=== PATIENT | female | born 1940 | race Caucasian/White ===

== ENCOUNTER → 2016-04-01 | Outpatient (REF) ==
[~2016-04-01] MED LIST: ASPIR-LOW81 MG PO; ASPIRIN E.C. 8181 MG PO; EAR DROPS; GLUCOPHAGE1000 MG PO; LISINOPRIL2.5 MG PO; LOVASTATIN; METFORMIN500 MG PO; MOBIC7.5 M1 PO; ZESTRIL2.5 MG
== END ==
LOC: ZLAB.WCH 11:45
DX: Z01.89 Encounter for other specified special examinations (principal)

== ENCOUNTER → 2016-06-24 | Outpatient (REF) | LOC: ZLAB.WCH 11:36 | DX: Z01.89 Encounter for other specified special examinations (principal) ==

== ENCOUNTER → 2016-11-22 | Outpatient (CLI) | payer MEDICARE, OTHER | LOC: MC.RAD 08:03 | DX: Z12.31 Encounter for screening mammogram for malignant neoplasm of breast (principal) ==

== ENCOUNTER → 2017-01-05 | Outpatient (REF) | LOC: ZLAB.WCH 18:37 | DX: Z01.89 Encounter for other specified special examinations (principal) ==

== ENCOUNTER → 2017-07-06 | Outpatient (REF) | LOC: ZLAB.WCH 15:53 | DX: Z01.89 Encounter for other specified special examinations (principal) ==

== ENCOUNTER → 2017-11-17 | Outpatient (REF) | LOC: ZLAB.WCH 15:53 | DX: Z01.89 Encounter for other specified special examinations (principal) ==

== ENCOUNTER → 2017-11-25 | Outpatient (CLI) | payer MEDICARE, OTHER | LOC: MC.RAD 11:37 | DX: Z12.31 Encounter for screening mammogram for malignant neoplasm of breast (principal) ==

== ENCOUNTER → 2018-06-09 | Outpatient (REF) | LOC: ZLAB.WCH 14:15 | DX: Z01.89 Encounter for other specified special examinations (principal) ==

== ENCOUNTER → 2018-12-19 | Outpatient (CLI) | payer MEDICARE, OTHER | LOC: MC.RAD 12-18 10:30 | DX: Z12.31 Encounter for screening mammogram for malignant neoplasm of breast (principal); Z98.82 Breast implant status; Z92.3 Personal history of irradiation ==

== ENCOUNTER → 2019-12-31 | Outpatient (CLI) | payer MEDICARE, OTHER | LOC: MC.RAD 11:25 | DX: Z12.31 Encounter for screening mammogram for malignant neoplasm of breast (principal) ==

== ENCOUNTER → 2021-01-27 | Outpatient (CLI) | payer MEDICARE, OTHER | LOC: MC.RAD 12:39 | DX: Z12.31 Encounter for screening mammogram for malignant neoplasm of breast (principal) ==

== ENCOUNTER → 2023-02-02 | Outpatient (CLI) | payer MEDICARE, OTHER | LOC: MC.RAD 13:26 | DX: Z12.31 Encounter for screening mammogram for malignant neoplasm of breast (principal) ==

== ENCOUNTER 2023-09-29 16:20 | Inpatient (IN) | payer MEDICARE ==
[2023-09-28 21:45] VITALS: BP 162/74; PULSE 66
[2023-09-28 23:45] VITALS: BP 154/71; PULSE 69; TEMP 98
[2023-09-29] VITALS (11 sets, daily range): BP systolic 147–162; BP diastolic 69–83; PULSE 65–83; TEMP 97.8–98
[~2023-09-29] VITALS: Ht 152.4 cm; Wt 54.0 kg
--- NOTE | 2023-09-29 18:32 | NUR ---
Patient arrived by EMS, Amio gtt at 0.5 mg /min. Denies any chest pain, lightheadedness or other discomfort. Hypertensive and tachy 147/93 , HR 120. RA. Assessment intake completed.
[2023-09-29] MEDS ORDERED: LIPITOR 80MG80 MG PO (18:38)
[2023-09-29] MEDS ORDERED: JARDIANCE25 (18:38)
[2023-09-29] MEDS ORDERED: TOPROL XL 25MG25 MG PO (18:39)
[2023-09-29] MEDS ORDERED: PLAVIX 75MG TAB75 MG PO (18:44)
[2023-09-29] MEDS ORDERED: NEURONTIN300 MG/CAP PO (18:46)
[2023-09-29] MEDS ORDERED: VITAMIND3 5000 PO (18:47)
[2023-09-29] MEDS ORDERED: OZEMPIC0.25 MG/02 SQ (18:48)
[2023-09-29] MEDS ORDERED: Acetaminophen 325 MG TAB PO PRN (19:45)
[2023-09-29] MEDS ORDERED: Ondansetron 4 MG/2 ML VIAL IV PRN (19:45)
[2023-09-29 19:53] LABS: HEMATOCRIT 46.8 % (37.0-47.0); MEAN CELL VOLUME 79 fl (80.0-100.0); MEAN CORPUSCULAR HEMOGLOBIN 27 pg (27-31); MEAN CORPUSCULAR HGB CONC 34 g/dl (33.0-37.0); MEAN PLATELET VOLUME 10.3 fl (7.4-10.4); PLATELET COUNT 299 K/mm3 (130-400); RED BLOOD COUNT 5.93 M/mm3 (4.10-5.30); REDCELL DISTRIBUTION WIDTH-CV 14.2 % (11.5-14.5)
[2023-09-29] MEDS ORDERED: Heparin/D5W 250 ML IV SCH (20:00)
[2023-09-29] MEDS ORDERED: Heparin 5,000 UNITS/ML 1 ML VIAL IV ONE (20:00)
[2023-09-29] MEDS ORDERED: Heparin 5,000 UNITS/ML 1 ML VIAL IV PRN (20:00)
[2023-09-29] MEDS ORDERED: Amiodarone 450 MG in D5W Excel 250 ML IV SCH (20:00)
[2023-09-29 20:11] LABS: ALANINE AMINOTRANSFERASE 25 U/L (0-55); ALKALINE PHOSPHATASE 105 U/L (40-150); ANION GAP 10 mmol/L (7-16); AST,SGOT 20 U/L (5-34); BILIRUBIN,TOTAL 0.9 mg/dL (0.2-1.2); BLOOD UREA NITROGEN 32 mg/dL (10-20); CHLORIDE 105 mEq/L (98-107); CREATININE, serum 0.84 mg/dL (0.57-1.11); GLUCOSE 180 mg/dL (70-99); MAGNESIUM 1.1 mg/dL (1.6-2.6); POTASSIUM 3.9 mEq/L (3.5-4.5); SODIUM 140 mEq/L (136-145); TOTAL PROTEIN 7.3 g/dl (6.2-8.1)
[2023-09-29] MEDS ORDERED: Mag/Al Hydrox/Simeth Susp 30 ML CUP PO PRN (20:15)
[2023-09-29] MEDS ORDERED: Albuterol/Ipratropium 3 MG-0.5 MG/3 ML Neb Soln IH PRN (20:15)
[2023-09-29 20:19] LABS: TROPONIN-I 6 HR POST INITIAL < 0.010 ng/mL (0.00-0.033)
[2023-09-29] MEDS ORDERED: Insulin Lispro (HumaLOG) SQ SCH (21:00)
[2023-09-29] MEDS ORDERED: Sennosides/Docusate 8.6-50 MG TAB PO SCH (21:00)
[2023-09-29] MEDS ORDERED: Atorvastatin 80 MG TAB PO SCH (21:00)
[2023-09-29] MEDS ORDERED: Gabapentin 100 MG CAP PO SCH (21:00)
[2023-09-29 21:13] LABS: PARTIAL THROMBOPLASTIN TIME 29.3 SECONDS (26.0-37.0)
--- NOTE | 2023-09-29 23:21 | NUR ---
patient lying in bed, alert and oriented x4. denies chest pain and shortness of breath. 2005- orders clarified by OZZY Salinas to run amio at 1 mg/min for 3 hrs then adjust rate to 0.5 mg/min, heparin gtt and additional orders initiated. IV started in RF and current IV in LAC are patent, sites are CDI. slight blanchable redness noted on inner bilateral buttock cheeks, education provided on skin protection, pt verbally understood and refuses to not wear brief and refuses barrier cream at this time, able to self reposition. amio gtt running through LAC IV at rate of 1 mg/min and heparin gtt running through RF IV at a rate of 10 mls/hr both sites CDI. general brusing to all extremities noted. 2309- OZZY Salinas notified of pt in sinus rhythm with rate in 60s, per OZZY Salinas, will get EKG if pt remains in sinus rhythym at 0000, continue orders. fall precautions in place, call light within reach. pillow maintained between pt knees to protect bony prominences. pt has no further needs, questions or concerns at this time.
[2023-09-30] VITALS (14 sets, daily range): BP systolic 111–171; BP diastolic 47–89; PULSE 62–73; TEMP 97.3–97.8
[2023-09-30] MEDS ORDERED: Amiodarone 450 MG in D5W Excel 250 ML IV SCH ×2 (01:56)
[2023-09-30 03:53] LABS: BASO # 0.1 K/mm3 (0.0-0.2); BASO % 0.5 % (0.0-2.0); EOS # 0.1 K/mm3 (0.0-0.7); EOS % 1.2 % (0.0-4.0); GRAN # 6.8 K/mm3 (1.4-6.5); LYMPH # 2.6 K/mm3 (1.2-3.4); LYMPH % 24.7 % (20.0-51.0); MEAN CELL VOLUME 79 fl (80.0-100.0); MEAN CORPUSCULAR HEMOGLOBIN 28 pg (27-31); MEAN CORPUSCULAR HGB CONC 35 g/dl (33.0-37.0); MEAN PLATELET VOLUME 10.4 fl (7.4-10.4); PLATELET COUNT 253 K/mm3 (130-400); RED BLOOD COUNT 5.46 M/mm3 (4.10-5.30); REDCELL DISTRIBUTION WIDTH-CV 14.2 % (11.5-14.5)
[2023-09-30 04:11] LABS: CALCIUM 9.8 mg/dL (8.4-10.2); CREATININE, serum 0.9 mg/dL (0.57-1.11); POTASSIUM 3.9 mEq/L (3.5-4.5)
[2023-09-30 04:33] LABS: THYROID STIMULATING HORMONE 1.521 uIU/mL (0.350-4.940)
[2023-09-30] MEDS ORDERED: Dextrose 50% Water 25 GM/50 ML SYRINGE IV PRN (07:30)
[2023-09-30] MEDS ORDERED: Glucagon 1 MG VIAL IM PRN (07:30)
[2023-09-30] MEDS ORDERED: Dextrose (Glucose) 15 GM (4 x 3.75 GM) Chewable TABLET PACK PO PRN (07:30)
--- NOTE | 2023-09-30 08:00 | NUR ---
HEPARIN RESTARTED AND VERIFIED WITH ALAN DUENAS CHARGE. CURRENTLY 10 MLS/HR.
--- NOTE | 2023-09-30 09:37 | NUR ---
NOTIFIED DR. CORNELIUS @ 4334 OF PT CONTINUES WITH A FIB.
--- NOTE | 2023-09-30 09:41 | NUR ---
Initial visit; Patient [place] [facility] all her life and loves her life. Second Watch Sergeant states [place] and [place]. Patient and Second Watch Sergeant had a good visit. Second Watch Sergeant had to postpone prayer with Cici due to 'Rounding' so Second Watch Sergeant will keep Cici in her prayers.
[2023-09-30] MEDS ORDERED: SYNTHROID0.05 MG/TA PO (09:44)
[2023-09-30] MEDS ORDERED: Gabapentin 100 MG CAP PO ONE (10:15)
--- NOTE | 2023-09-30 14:03 | NUR ---
Forest Firefighter met with patient to discuss discharge planning. [place] [facility] [place] and stated she does not live with anyone besides her animals. Patient sees Dr. Clay for primary care and gets medications from [facility]. Patient has a rollator and cane available at home along with home oxygen through [facility]. Patient stated she is normally independent with ADLS, however does struggle sometimes with washing her back. Patient does not feel it is at the point where she needs in home help. Patient reported her neighbor checks in on her as needed. Patient's son, Ming (ph#[phone]) is a PA and lives in [place]. Patient stated Ming is her DPOA. Patient plans to return home at time of discharge and hopes to get home soon to watch the [employer]. Discharge Plan: Home
[2023-09-30 14:51] LABS: PARTIAL THROMBOPLASTIN TIME 117.7 SECONDS (26.0-37.0)
--- NOTE | 2023-09-30 15:04 | NUR ---
REPORT TO Casandra DUENAS.
--- NOTE | 2023-09-30 15:05 | NUR ---
REPORT RECEIVED FROM HENRIQUE WHITLOCK. AMIODARONE RUNNING IN LEFT AC AT 17.3 MLS/HR AND HEPARIN ON STANDY TO RESUME AT 1545. PT IN CHAIR AND DENIES NEEDS AT THIS TIME.
--- NOTE | 2023-09-30 15:43 | NUR ---
THIS NURSE CALLED AND NOTIFIED DR EVANS THAT PER PROTOCOL HEPARIN DRIP TO BE RESTARTED AT 1545. PLAN FOR CENTRAL LINE PLACEMENT AROUND 1615 AND THIS NURSE TOLD TO KEEP HEPRIN DRIP ON HOLD UNTIL CENTRAL LINE IS PLACED. THIS NURSE VERBALIZED UNDERSTANDING.
--- NOTE | 2023-09-30 16:43 | NUR ---
PT IN OR FOR CENTRAL LINE PLACEMENT
--- NOTE | 2023-09-30 18:26 | NUR ---
PT BACK FROM PACU AND UP TO CHAIR FOR DINNER. CENTRAL LINE TO RIGHT IJ, BRIGHT RED BLOOD NOTED TO DRESSING. PER [employer]ODUCT DEMO SPECIALIST DRESSING CHANGED 15 MINS PRIOR TO TRANSPORT. AMIODARONE RUNNING IN LEFT AC AT 17.3 MLS/HR AND HEPARIN DRIP CHANGED AND RESTARTED AT 8 MLS/HR PER PROTOCL. PT DENIES NEEDS.
--- NOTE | 2023-09-30 19:28 | NUR ---
REPORT GIVEN TO HENRIQUE LOPEZ
--- NOTE | 2023-09-30 20:46 | NUR ---
1730 Pt found in pacu-4 (waiting to go back to room) with saturated central line site, leaking into pillow case (line just placed in pacu). Pt on anticoagulant therapy. New central line dressing placed by this RN using sterile technique with additional sterile 4x4 dressing added under tegaderm/on top of bacteriostatic disc after educating and masking pt, who tolerated procedure well and without complaint. ice bag to r neck/line site to control bleeding as it is still leaky. Affected linens changed with drsg change. Pt transported with PACU staff to floor and drsg change and heparin gtt (paused) endorced to receiving RN. Dinner also ordered for her by PACU staff. Pt a&o, nad, and denies complaint or immediate need.
[2023-09-30] MEDS ORDERED: Gabapentin 300 MG CAP PO SCH (21:00)
[2023-10-01] VITALS (13 sets, daily range): BP systolic 114–148; BP diastolic 61–85; PULSE 55–71; TEMP 97.7–98.1
--- NOTE | 2023-10-01 00:03 | NUR ---
patient lying in bed, alert and oriented x4. denies chest pain and shortness of breath. PICC in RSC is patent, site is intact with dry bloody drainage noted, no continued bleeding at this time with amio gtt running at 0.5 mg/min. IV in RF is patent, site CDI with heparing gtt running at 8 ml/hr, 2000- hepxa within goal range, next check at 0500. blanchable redness to inner buttock cheeks noted, pt refusing barrier cream and additional interventions offered, independt with repositioning. fall precautions in place, call light within reach. pt has no further needs, questions or concerns at this time.
[2023-10-01 04:53] LABS: BASO # 0.1 K/mm3 (0.0-0.2); BASO % 0.7 % (0.0-2.0); EOS # 0.2 K/mm3 (0.0-0.7); EOS % 2.3 % (0.0-4.0); GRAN # 5.7 K/mm3 (1.4-6.5); GRAN % 63.2 % (42.2-75.2); HEMATOCRIT 41.6 % (37.0-47.0); HEMOGLOBIN 14.1 g/dl (12.5-16.0); LYMPH # 2.2 K/mm3 (1.2-3.4); LYMPH % 24.1 % (20.0-51.0); MEAN CELL VOLUME 81 fl (80.0-100.0); MEAN CORPUSCULAR HEMOGLOBIN 27 pg (27-31); MEAN CORPUSCULAR HGB CONC 34 g/dl (33.0-37.0); MEAN PLATELET VOLUME 10.9 fl (7.4-10.4); MONO # 0.8 K/mm3 (0.1-0.6); MONO % 9.3 % (1.7-9.3); PLATELET COUNT 228 K/mm3 (130-400); RED BLOOD COUNT 5.15 M/mm3 (4.10-5.30); REDCELL DISTRIBUTION WIDTH-CV 14.4 % (11.5-14.5)
[2023-10-01 05:14] LABS: CALCIUM 9.6 mg/dL (8.4-10.2); CREATININE, serum 0.86 mg/dL (0.57-1.11); POTASSIUM 3.7 mEq/L (3.5-4.5)
--- NOTE | 2023-10-01 08:30 | NUR ---
PT LAYING IN BED UPON ENTERING. ASSESSMENT DONE, MEDS GIVEN PER ORDER. PT DENIES PAIN. RIGHT TRIPLE IJ IN PLACE, BRIGHT RED BLOOD DRAINAGE NOTED AND PER NIGHT NURSE NO INCREASE FROM START OF HER SHIFT. BLUE, WHITE AND BROWN PORTS FLUSH WITH BLOOD RETURN. AMIODARONE RUNNING AT 17.3 MLS/HR IN WHITE PORT, HEPARIN RUNNING AT 6.5 MLS/HR IN BLUE PORT. INTS TO LEFT AC AND RIGHT FOREARM. PT DENIES NEEDS. BED IN LOWEST POSITION, CALL LIGHT IN REACH, BED ALARM ON
--- NOTE | 2023-10-01 13:00 | NUR ---
HEPXA FIRST GOAL AT 0.61. NO CHANGE MADE, HEPARIN RUNNING AT 6.5 MLS/HR.
--- NOTE | 2023-10-01 13:19 | NUR ---
SW received notification from therapy that patient is wanting to have home health services when she returns home. ODALYS met with patient to discuss. She states that she's had services from [facility] in the past and would like to use them again. [email or web address] list provided to patient. Referral faxed to [facility]. Discharge plan: Home with
--- NOTE | 2023-10-01 16:50 | NUR ---
PER CARDIOLOGY NOTE PT TO START ORAL AMIODARONE, NO ORDERS AT THIS TIME. DR FINNEGAN CALLED AND CONFIRMED THIS. DR CORNELIUS UPDATED
[2023-10-01] MEDS ORDERED: Amiodarone 450 MG in D5W Excel 250 ML IV SCH ×2 (17:15→23:15)
--- NOTE | 2023-10-01 17:19 | NUR ---
HOSPITALIST NOTIFIED THAT AMIODARONE TO DISCONTINUE NOW PER ORDER AND ASKED IF HE WANTED DRIP TO CONTINUE UNTIL FIRST DOSE. THIS NURSE TOLD TO CONTINUE DRIP FOR 2 HOURS AFTER FIRST DOSE OF AMIODARONE
--- NOTE | 2023-10-01 18:25 | NUR ---
HEPXA 0.52, SECOND GOAL WITH RECHECK TOMORROW MORNING. HEPARIN RUNNING AT 6.5 MLS/HR PER PROTOCOL.
--- NOTE | 2023-10-01 19:02 | NUR ---
REPORT GIVEN TO HENRIQUE LOPEZ
[2023-10-01] MEDS ORDERED: Amiodarone 200 MG TAB PO SCH (21:00)
[2023-10-01] MEDS ORDERED: Gabapentin 300 MG CAP PO SCH (21:00)
--- NOTE | 2023-10-01 23:30 | NUR ---
patient sitting in recliner, alert and oriented x4. denies chest pain and shortness of breath. PICC in RIJ is patent with amio gtt running at 0.5 mg/min and IV in LAC is patent with heparin gtt running at 6.5 ml/hr, sites are CDI. slight blanchable redness to upper sacrum, pt repositionings and refusing additional interventions. pt ambulate to bed. PO amio started, per orders, amio gtt discontinued at 2300. fall precautions in place, call light within reach. pt has no further needs, questions or concerns at this time.
[2023-10-02 04:18] VITALS: BP 146/77; PULSE 64; TEMP 97.7
[2023-10-02 04:19] VITALS: BP_SYST 146
[2023-10-02 06:15] LABS: BASO # 0.1 K/mm3 (0.0-0.2); BASO % 0.6 % (0.0-2.0); EOS # 0.2 K/mm3 (0.0-0.7); EOS % 2.1 % (0.0-4.0); GRAN # 6.3 K/mm3 (1.4-6.5); GRAN % 66.9 % (42.2-75.2); HEMATOCRIT 42.4 % (37.0-47.0); HEMOGLOBIN 14.2 g/dl (12.5-16.0); LYMPH # 2.1 K/mm3 (1.2-3.4); LYMPH % 22.7 % (20.0-51.0); MEAN CELL VOLUME 81 fl (80.0-100.0); MEAN CORPUSCULAR HEMOGLOBIN 27 pg (27-31); MEAN CORPUSCULAR HGB CONC 34 g/dl (33.0-37.0); MEAN PLATELET VOLUME 10.6 fl (7.4-10.4); MONO # 0.7 K/mm3 (0.1-0.6); MONO % 7.1 % (1.7-9.3); PLATELET COUNT 224 K/mm3 (130-400); RED BLOOD COUNT 5.21 M/mm3 (4.10-5.30); REDCELL DISTRIBUTION WIDTH-CV 14.3 % (11.5-14.5)
[2023-10-02 06:39] LABS: CALCIUM 8.4 mg/dL (8.4-10.2); CREATININE, serum 0.81 mg/dL (0.57-1.11); POTASSIUM 3.7 mEq/L (3.5-4.5)
[2023-10-02 07:10] VITALS: BP 122/69; PULSE 66; TEMP 97.5
[2023-10-02] MEDS ORDERED: Heparin/D5W 250 ML IV SCH (08:00)
[2023-10-02 08:08] VITALS: BP_SYST 122
--- NOTE | 2023-10-02 09:15 | NUR ---
PT SITTING IN CHAIR UPON ENTERING. ASSESSMENT DONE, MEDS GIVEN, PT REFUSED S[place]. RIGHT IJ DRESSING CLEAN DRY AND INTACT. BLUE, BROWN AND WHITE PORTS FLUSH WITH BLOOD RETURN. HEPXA RESULT INDICATE NO RATE CHANGE AND CURRENTLY RUNNING AT 6.5 MLS/HR. PT DENIES NEEDS. CALL LIGHT IN REACH, CHAIR ALARM ON
[2023-10-02 11:38] VITALS: BP 115/71; PULSE 58; TEMP 97.3
--- NOTE | 2023-10-02 11:49 | NUR ---
ODALYS notified that patient is stable for discharge to home today with HH. ODALYS met with patient and reviewed Medicare IM form, patient voiced understanding and is agreeable to discharge. Stephon signed form, original on chart, copy to patient. She states that her friend is coming to pick her up. Discharge orders and updated clinicals faxed to [facility].
[2023-10-02] MEDS ORDERED: CORDARONE200 MG/TAB PO (12:44)
[2023-10-02 12:46] VITALS: BP_SYST 115
--- NOTE | 2023-10-02 13:45 | NUR ---
PT EDUCATED ON CENTRAL LINE REMOVAL AND VERBALIZED UNDERSTANDING. PT FLAT IN BED AND STERILE PROCEDURE USED TO REMOVD RIGHT IJ, PT TOLERATED WELL. PRESSURE HELD TO SITE BY THIS NURSE FOR 10 MINUTES. PT EDUCATED ON FLAT TIME FOR ANOTHER 20 MINUTES. BED IN LOWEST POSITION, CALL LIGHT IN REACH
--- NOTE | 2023-10-02 14:33 | NUR ---
TELE OFF AND PT DRESSED IN PERSONAL CLOTHES. DISCHARGE INSTRUCTIONS GIVEN AND PT EDUCATED ON AMIODARONE TAPER, ALL QUESTIONS ANSWERED. PT DENIES NEEDS AND ESCORTED TO PERSONAL VEHICLE VIA WHEELCHAIR BY THIS NURSE
[2023-10-08] MEDS ORDERED: Amiodarone 200 MG TAB PO SCH (21:00)
[2023-10-16] MEDS ORDERED: Amiodarone 200 MG TAB PO SCH (09:00)
== END 2023-10-02 14:38 | disposition home or self-care (01) | DRG 309 ==
LOC: MEDICAL 16:20
PROVIDERS: Physician Assistant; Surgery; ADMIT Internal Medicine
PROC: 02H633Z Insertion of Infusion Device into Right Atrium, Percutaneous Approach (ICD-10-PCS; principal; 2023-09-30 16:30)
DX: I48.0 Paroxysmal atrial fibrillation (principal); I50.20 Unspecified systolic (congestive) heart failure; I25.10 Atherosclerotic heart disease of native coronary artery without angina pectoris; E78.5 Hyperlipidemia, unspecified; I11.0 Hypertensive heart disease with heart failure; E03.9 Hypothyroidism, unspecified; E11.40 Type 2 diabetes mellitus with diabetic neuropathy, unspecified; M19.90 Unspecified osteoarthritis, unspecified site; Z79.82 Long term (current) use of aspirin; Z79.02 Long term (current) use of antithrombotics/antiplatelets; Z95.5 Presence of coronary angioplasty implant and graft; Z95.4 Presence of other heart-valve replacement; Z79.899 Other long term (current) drug therapy; Z90.710 Acquired absence of both cervix and uterus; Z79.84 Long term (current) use of oral hypoglycemic drugs; Z90.49 Acquired absence of other specified parts of digestive tract; I25.2 Old myocardial infarction
CPT/HCPCS: C1751; J0282; J1644; J1815; J7060